=== PATIENT | female | born 1980 | race Two or more races ===

== ENCOUNTER 2022-05-10 19:26 | Emergency (ER) | payer OTHER ==
[~2022-05-10] VITALS: Ht 167.6 cm; Wt 85.3 kg
--- NOTE | 2022-05-10 20:10 | NUR ---
[id number] and lapd from [facility], agitated, versed 5mg given on scene clearance for booking. PLACED ON BED ASLEEP, BREATHING EVEN AND UNLABORED.
[2022-05-10 21:13] LABS: BASOPHILS % (AUTO) 0.1 % (0.0-2.0); EOSINOPHILS % (AUTO) 0.1 % (0.0-6.0); HEMATOCRIT 35 % (33-45); HEMOGLOBIN 11.5 g/dL (11.5-14.8); LYMPHOCYTES # (AUTO) 1.5 K/uL (0.8-4.8); LYMPHOCYTES % (AUTO) 12.1 % (20.0-44.0); MEAN CORPUSCULAR HGB CONC 33 g/dl (31.0-36.0); MEAN CORPUSCULAR VOLUME 87 fL (82-100); MONOCYTES # (AUTO) 1.1 K/uL (0.1-1.30); MONOCYTES % (AUTO) 8.8 % (2.0-12.0); NEUTROPHILS % (AUTO) 78.9 % (43.0-81.0); PLATELET COUNT (AUTO) 279 K/uL (150-450); WHITE BLOOD COUNT (AUTO) 12.6 K/uL (4.3-11.0)
[2022-05-10 21:28] LABS: CALCIUM, SERUM 8.9 mg/dL (8.5-10.1); CARBON DIOXIDE 29 mmol/L (21-32); CHLORIDE 103 mmol/L (98-107); CREATININE 0.8 mg/dL (0.6-1.3); GLUCOSE 106 mg/dL (74-106); POTASSIUM 3.1 mmol/L (3.5-5.1); SODIUM SERUM 137 mmol/L (136-145); UREA NITROGEN, BLOOD 11 mg/dL (7-18)
[2022-05-10 21:34] LABS: ALANINE AMINOTRANSFERASE 20 U/L (12-78); ALBUMIN 3.6 g/dL (3.4-5.0); ALCOHOL, BLOOD < 3 mg/dL (0-0); ALKALINE PHOSPHATASE 83 U/L (46-116); ASPARTATE AMINOTRANSFERASE 23 U/L (15-37); BILIRUBIN,DIRECT 0.2 mg/dL (0.0-0.2); BILIRUBIN,TOTAL 1.2 mg/dL (0.2-1.0); TOTAL PROTEIN, SERUM 7.1 g/dL (6.4-8.2)
[2022-05-10] MEDS ORDERED: IV NS 0.9% 1,000 ML IV ONE (23:30)
[2022-05-10] MEDS ORDERED: POTASSIUM CL. PREMIX PERIPHER. 50 ML ONE (23:40)
[2022-05-10] MEDS: POTASSIUM CL. PREMIX PERIPHER. 50 ML IV SCH (23:45)
[2022-05-11] MEDS ORDERED: POTASSIUM CL. PREMIX PERIPHER. 50 ML ONE (00:25)
[2022-05-11] MEDS: POTASSIUM CL. PREMIX PERIPHER. 50 ML IV SCH (01:15)
[2022-05-11 06:06] VITALS: BP 117/70
--- NOTE | 2022-05-11 06:06 | NUR ---
Patient discharged to home in stable condition. Written and verbal after care instructions given. Patient verbalizes understanding of instruction.
== END 2022-05-11 06:07 | disposition home or self-care (01) ==
LOC: ER 19:42
DX: R45.1 Restlessness and agitation (principal); E87.6 Hypokalemia
CPT/HCPCS: 99284; 96365; 85025; 80048; 80076; 36415; 80143; 80320; 96366; J7030; J3480 ×2; G0480